=== PATIENT | female | born 1955 | race Hispanic/Latino ===

== ENCOUNTER 2018-01-12 10:33 | Emergency (ER) | payer OTHER, BC ==
[2018-01-12 10:44] VITALS: BMI 31.6
[2018-01-12 10:45] VITALS: RESP 18; O2SAT 99
[2018-01-12] MEDS ORDERED: Sodium Chloride 0.9% 1,000 ML IV STA (11:23)
[2018-01-12] MEDS ORDERED: Magnesium Sulfate 1 gm in D5W 1 GM/100 ML BAG IVPB ONE (11:23)
--- NOTE | 2018-01-12 11:27 | ED PDOC ---
Arrival/HPI - General Chief Complaint: Headache Time Seen by Provider: 01/12/18 11:15 Historian: Patient - History of Present Illness Narrative History of Present Illness (Text): 01/12/18 11:24 pt p/w + 2days onset of right sided headache, consistent with her migraine; pt states she at most would experience 1 headache a month (due to her migraines) but this headache has been lasting longer and OTC medications are not helping ( excedrin); pt states + light sensitive, + nausea; no fever/chills/sweats, no cp/ sob/palpitations, no abd pain, no vomiting, no numbness/tingling, no arm weakness, no facial changes, no urinary/bowel changes, no incontinence, no fall/ trauma/sick contact, no travel; pt is here for further eval; pt's without other complaints. PCP: Dr Donnelly right hand dominate PMHx: migraines, DM Time/Duration: < week (2 days) Symptom Onset: Sudden Symptom Course: Unchanged Quality: Tightness, Stabbing, Cramping Severity Level: 10, Severe Activities at Onset: Rest Context: Home Past Medical History - Provider Review Nursing Documentation Reviewed: Yes - Travel History Have you recently traveled outside [place] w/in the past 3 mons?: No - Past History Past History: No Previous - Infectious Disease Hx of Infectious Diseases: None - Reproductive Menopause: Yes Currently : No - Cardiac Hx Cardiac Disorders: Yes Other/Comment: hyperlipedemia - Pulmonary Hx Respiratory Disorders: No - Neurological Hx Neurological Disorder: No - HEENT Hx HEENT Disorder: Yes Other/Comment: Reading glasses. B/l Lasix Eye Surgery - Renal Hx Renal Disorder: No - Endocrine/Metabolic Hx Endocrine Disorders: Yes Hx Diabetes Mellitus Type 2: Yes - Hematological/Oncological Hx Blood Disorders: No - Integumentary Hx Dermatological Disorder: No - Musculoskeletal/Rheumatological Hx Musculoskeletal Disorders: No - Gastrointestinal Hx Gastrointestinal Disorders: No - Genitourinary/Gynecological Hx Genitourinary Disorders: No - Psychiatric Hx Psychophysiologic Disorder: No Hx Substance Use: No - Surgical History Hx Orthopedic Surgery: Yes (R knee, L shoulder, R foot, b/l wrist) Hx Tonsillectomy: Yes - Anesthesia Hx Anesthesia: Yes Hx Anesthesia Reactions: No - Suicidal Assessment Feels Threatened In Home Enviroment: No Family/Social History - Physician Review Nursing Documentation Reviewed: Yes Family/Social History: No Known Family HX Smoking Status: Never Smoked Hx Alcohol Use: Yes Frequency of alcohol use: Socially Hx Substance Use: No Hx Substance Use Treatment: No Allergies/Home Meds Allergies/Adverse Reactions: Allergies iodine Allergy (Verified 01/12/18 10:46) RASH Penicillins Allergy (Verified 01/12/18 10:46) RASH sulfamethoxazole [From Bactrim] Allergy (Verified 01/12/18 10:46) ANAPHYLAXIS trimethoprim [From Bactrim] Allergy (Verified 01/12/18 10:46) ANAPHYLAXIS Home Medications: Home Meds Medication Instructions Recorded Confirmed Alprazolam [Xanax] 0.25 mg PO DAILY 11/20/13 01/12/18 Esomeprazole Magnesium [Nexium] 20 mg PO DAILY 11/20/13 01/12/18 Glimepiride 5 mg PO BID 11/20/13 01/12/18 Metformin Hydrochloride/Anny 1 tab PO DAILY 11/20/13 01/12/18 [Janumet 500 mg-50 mg] [id number] Ethyl Esters [Lovaza] 1 gm PO BID 11/20/13 01/12/18 Pregabalin [Lyrica] 75 mg PO DAILY 11/20/13 01/12/18 Rosuvastatin Calcium [Crestor] 10 mg PO DAILY 11/20/13 01/12/18 Mirabegron [Myrbetriq] 50 mg PO DAILY 01/12/18 01/12/18 Naproxen [Naprosyn Tab] 375 mg PO DAILY 01/12/18 01/12/18 Tiotropium [Spiriva] 18 mcg INH DAILY 01/12/18 01/12/18 Review of Systems - Review of Systems Constitutional: Normal Eyes: Normal ENT: Normal Respiratory: Normal Cardiovascular: Normal. absent: Chest Pain, Orthopnea, Syncope Gastrointestinal: Nausea. absent: Abdominal Pain, Vomiting Genitourinary Female: Normal Musculoskeletal: Normal Skin: Normal Neurological: Headache Endocrine: Normal Hemo/Lymphatic: Normal Psychiatric: Normal Physical Exam - Physical Exam Narrative Physical Exam (Text): 01/12/18 11:23 General: alert/awake, GCS = 15, oriented x 3, resting in bed, uncomfortable, cooperative, interactive; mild distress due to pain Head: NC/AT EYE: PERRLA, EOMI, sclera anicteric, no nystagmus, + light sensitive; visual field intact b/l; wearing sunglasses Facial: WNL Oral: uvula/tongue are midline, no exudate/lesions, no drooling/stridor, no dysphonia; intact dentitions; mild dry oral mucosa NECK: intact ROM, no midline tenderness, no nuchal rigidity, no meningeal signs ; no step off Chest: CTA b/l, no w/r/r; no tachypenia, no accessory muscle use noted Cardiac: +S1, +S2, no m/r/r, no tachycardia Abdominal: +BS, soft/nd/nt, well nourished/obese female patient; no masses/ rebound/guarding/rigidity; no joya's sign, no mcburney's point tenderness Extremities: intact ROM, strength 5/5 grossly intact in all limbs, neurovasc intact b/l; + ambulatory; reflex +2/2 BACK: no step off, no midline tenderness, NO crepitus, no gross deformities noted; Intact ROM SKIN: cap refill ~ 1 sec, no ulcerations, no petechiae, no rashes; no gross pallor noted NEURO: CNII-XII WNL, no facial asymmetries, no slurr speech, oriented x 3 NIH stroke scale ~ 0 Psych: normal insight, normal affect; follows command with ease Vital Signs Reviewed: Yes Vital Signs Temp Pulse Resp BP Pulse Ox 01/12/18 14:00 64 18 128/68 99 01/12/18 12:33 69 18 130/71 99 01/12/18 10:44 98.4 F 75 18 132/79 99 Temperature: Afebrile Blood Pressure: Normal Pulse: Regular Respiratory Rate: Normal Appearance: Positive for: Well-Appearing, Non-Toxic, Uncomfortable. No: Ill- Appearing, Unkept Pain Distress: Mild Mental Status: Positive for: Alert and Oriented X 3 Finger Stick Blood Glucose: 340 - Systems Exam Head: Present: Atraumatic, Normocephalic Medical Decision Making ED Course and Treatment: 01/12/18 11:23 Impression: murphy i have consider all the differential diagnosis regarding pt's chief medical complaints/clinical findings, including but are not limited to: murphy, migraines unlikely infectious cause, unlikely traumatic cause A/P: murphy - labs - iv - supportive care - observe/reevaluation 1:30pm pt felt improved pt states her headache is now 4-5/10 01/12/18 14:30 vital signs WNL pt states her headache remains improved, current pain level is 3/10 pt is made aware of her medical results pt is encouraged fluids pt is encouraged outpt f/u pt will be discharged home Re-evaluation Time: 14:00 Reassessment Condition: Improved - Lab Interpretations Lab Results: 01/12/18 12:18 01/12/18 12:18 Lab Results 01/12/18 12:18: Sodium 144, Potassium 4.6, Chloride 100, Carbon Dioxide 30, Anion Gap 19, BUN 16, Creatinine 0.6 L, Est GFR ( Amer) > 60, Est GFR ( Non-Af Amer) > 60, Random Glucose 371 H* D, Calcium 9.9, Total Bilirubin 0.5, AST 46 H, ALT 86 H, Alkaline Phosphatase 128 H, Total Protein 8.1, Albumin 4.7, Globulin 3.4, Albumin/Globulin Ratio 1.4 01/12/18 12:18: WBC 7.5, RBC 5.06, Hgb 14.6, Hct 42.9, MCV 84.8, MCH 28.9, MCHC 34.0, RDW 12.8, Plt Count 247, MPV 10.1, Gran % 65.4, Lymph % (Auto) 26.7, [place] % (Auto) 5.5, Eos % (Auto) 1.2 L, Baso % (Auto) 1.2, Gran # 4.89, Lymph # (Auto ) 2.0, [place] # (Auto) 0.4, Eos # (Auto) 0.1, Baso # (Auto) 0.09, ESR 17 01/12/18 11:51: Urine Color Yellow, Urine Appearance Clear, Urine pH 6.0, Ur Specific [place] 1.015, Urine Protein Negative, Urine Glucose (UA) >=1000, Urine Ketones Negative, Urine Blood Negative, Urine Nitrate Positive H, Urine Bilirubin Negative, Urine Urobilinogen 0.2, Ur Leukocyte Esterase Negative, Urine RBC 0 - 2, Urine WBC 2 - 5, Ur Epithelial Cells 4 - 5, Urine Bacteria Many , Urine Other Uyeast 01/12/18 10:57: POC Glucose (mg/dL) 340 H I have reviewed the lab results: Yes Interpretation: Abnormal lab values (elevated GLUC) - Medication Orders Current Medication Orders: Discontinued Medications Magnesium Sulfate/Dextrose (Magnesium Sulfate 1 Gm/100 Ml D5w) 1 gm in 100 mls @ 100 mls/hr IVPB ONCE ONE Stop: 01/12/18 12:22 Last Admin: 01/12/18 12:10 Dose: 100 mls/hr eMAR Start Stop Document 01/12/18 12:10 HI (Rec: 01/12/18 12:10 HI [id number]) Intravenous Solution Start Date 01/12/18 Start Time 12:10 Sodium Chloride (Sodium Chloride 0.9%) 1,000 mls @ 999 mls/hr IV .Q1H1M STA Stop: 01/12/18 12:23 Last Admin: 01/12/18 12:08 Dose: 999 mls/hr eMAR Start Stop Document 01/12/18 12:08 HI (Rec: 01/12/18 12:08 HI [id number]) Intravenous Solution Start Date 01/12/18 Start Time 12:08 Ketorolac Tromethamine (Toradol) 30 mg IVP STAT STA Stop: 01/12/18 11:24 Last Admin: 01/12/18 12:10 Dose: 30 mg MAR Pain Assessment Document 01/12/18 12:10 HI (Rec: 01/12/18 12:10 HI [id number]) Pain Reassessment Is this a pain reassessment? No Sleep Is patient sleeping during reassessment? No Presence of Pain Presence of Pain Yes Location Pain Location Body Billing Clerk Description Intensity of Pain at present 8 Acceptable Level of Pain 0 IVP Administration Document 01/12/18 12:10 HI (Rec: 01/12/18 12:10 HI [id number]) Charges for Administration # of IVP Administrations 1 Metoclopramide HCl (Reglan) 10 mg IVP STAT STA Stop: 01/12/18 11:24 Last Admin: 01/12/18 12:10 Dose: 10 mg IVP Administration Document 01/12/18 12:10 HI (Rec: 01/12/18 12:10 HI [id number]) Charges for Administration # of IVP Administrations 1 Disposition/Present on Arrival - Present on Arrival Any Indicators Present on Arrival: No History of DVT/PE: No History of Uncontrolled Diabetes: No Urinary Catheter: No History of Decub. Ulcer: No History Surgical Site Infection Following: None - Disposition Have Diagnosis and Disposition been Completed?: Yes Diagnosis: Migraine, Hyperglycemia Disposition: HOME/ ROUTINE Disposition Time: 14:38 Patient Plan: Discharge Condition: STABLE Discharge Instructions (ExitCare): Migraine Headache (DC), Blood Glucose Monitoring Print Language: UZBEK Additional Instructions: Make sure to see your doctor in 1-2 days DRINK PLENTY OF FLUIDS take your medications as prescribed RETURN TO ED IF worse pain, cant breath, persistent vomiting, high fever >101- 102 for hours, altered behavior, slurr speech, facial changes, focal weakness ( arm/leg or both), unable to urinate, heavy/persistent bleeding, passing out, chest pain, or other medical emergencies Prescriptions: Ibuprofen [Motrin] 400 mg PO QID PRN #30 tab PRN Reason: Pain, Mild (1-3) Metoclopramide [Reglan] 10 mg PO TID PRN #30 tab PRN Reason: Nausea/Vomiting Referrals: De Craven MD [Staff Provider] - Follow up with primary [facility] [Outside] - Follow up with primary [facility] [Outside] - Follow up with primary [facility] [Outside] - Follow up with primary Forms: [facility] (Italian)
[2018-01-12 11:56] LABS: URINE BILIRUBIN NEGATIVE (NEGATIVE); URINE BLOOD NEGATIVE (NEGATIVE); URINE GLUCOSE (UA) >=1000 mg/dL (NEGATIVE); URINE LEUKOCYTE ESTERASE NEGATIVE Leu/uL (NEGATIVE); URINE PROTEIN NEGATIVE mg/dL (<30 mg/dL); URINE UROBILINOGEN 0.2 E.U./dL (<1 E.U./dL)
[2018-01-12 12:28] LABS: BASO # 0.09 K/mm3 (0.0-2.0); BASO % 1.2 % (0.0-3.0); EOS # 0.1 (0.0-0.7); EOS % 1.2 % (1.5-5.0); GRAN # 4.89 (1.4-6.5); GRAN % 65.4 % (50.0-68.0); HEMOGLOBIN 14.6 g/dL (12.0-16.0); LYMPH % 26.7 % (22.0-35.0); MEAN CELL VOLUME 84.8 fl (80.0-105.0); MEAN CORPUSCULAR HEMOGLOBIN 28.9 pg (25.0-35.0); MEAN PLATELET VOLUME 10.1 fl (7.0-11.0); MONO # 0.4 (0.1-0.6); MONO % 5.5 % (1.0-6.0); RBC 5.06 10^6/uL (3.5-6.1); RED CELL DISTRIBUTION WIDTH 12.8 % (11.5-14.5); WHITE BLOOD COUNT 7.5 10^3/ul (4.5-11.0)
[2018-01-12 12:32] LABS: URINE APPEARANCE CLEAR (CLEAR); URINE COLOR YELLOW (YELLOW)
[2018-01-12 12:42] LABS: URINE RBC 0 - 2 /hpf (0-2)
[2018-01-12 12:43] LABS: URINE BACTERIA MANY (NEG)
[2018-01-12 12:45] LABS: ALB/GLOB RATIO 1.4 (1.1-1.8); ALBUMIN 4.7 g/dL (3.0-4.8); ALT/SGPT 86 U/L (7-56); AST/SGOT 46 U/L (14-36); BLOOD UREA NITROGEN 16 mg/dL (7-21); CALCIUM 9.9 mg/dL (8.4-10.5); GFR AFRICAN-AMERICAN > 60; GFR NON-AFRICAN AMERICAN > 60
[2018-01-12 18:22] VITALS: BP 125/72; PULSE 70; TEMP 98.3
== END 2018-01-12 14:00 | disposition home or self-care (01) ==
LOC: ED 10:33
DX: G43.909 Migraine, unspecified, not intractable, without status migrainosus (principal); E11.65 Type 2 diabetes mellitus with hyperglycemia
CPT/HCPCS: 80053; 81001; 82948; 85025; 85651; 87086; 96374; 96375; 99285; J1885; J2765; J3475; J7030

== ENCOUNTER 2018-03-11 16:56 | Observation (INO) | payer OTHER, BC ==
--- NOTE | 2018-03-11 18:46 | ED PDOC ---
Arrival/HPI - General Historian: Patient - History of Present Illness Time/Duration: Prior to Arrival Symptom Onset: Gradual - General Chief Complaint: GI Problem Time Seen by Provider: 03/11/18 17:48 - History of Present Illness Narrative History of Present Illness (Text): 03/11/18 18:42 Patient is a 63 yo female, past medical history of diabetes, presents to the Emergency Department with history of chills yesterday morning, loose stools last night, and nausea and persistent stools today. She feels very fatigued and weak. Denies chest pain or cough or abdominal pain. Denies vomiting. Denies any recent travel. Denies any bites or known new exposures. Denies any recent antibiotic usage. Of note, patient's recently admitted to ICU for nausea vomiting and diarrhea over past week. No headaches or neck pain. (Ramos Wylie) Past Medical History - Past History Past History: No Previous - Infectious Disease Hx of Infectious Diseases: None - Reproductive Menopause: Yes - Cardiac Hx Cardiac Disorders: Yes Other/Comment: hyperlipedemia - Pulmonary Hx Respiratory Disorders: No - Neurological Hx Neurological Disorder: No - HEENT Hx HEENT Disorder: Yes Other/Comment: Reading glasses. B/l Lasix Eye Surgery - Renal Hx Renal Disorder: No - Endocrine/Metabolic Hx Endocrine Disorders: Yes Hx Diabetes Mellitus Type 2: Yes - Hematological/Oncological Hx Blood Disorders: No - Integumentary Hx Dermatological Disorder: No - Musculoskeletal/Rheumatological Hx Musculoskeletal Disorders: No - Gastrointestinal Hx Gastrointestinal Disorders: No - Genitourinary/Gynecological Hx Genitourinary Disorders: No - Psychiatric Hx Psychophysiologic Disorder: No Hx Substance Use: No - Surgical History Hx Orthopedic Surgery: Yes (R knee, L shoulder, R foot, b/l wrist) Hx Tonsillectomy: Yes - Anesthesia Hx Anesthesia: Yes Hx Anesthesia Reactions: No Hx Malignant Hyperthermia: No - Suicidal Assessment Feels Threatened In Home Enviroment: No Family/Social History Family/Social History: Other ( recently admitted for sepsis) Smoking Status: Never Smoked Hx Alcohol Use: Yes Hx Substance Use: No Hx Substance Use Treatment: No Allergies/Home Meds Allergies/Adverse Reactions: Allergies iodine Allergy (Verified 01/12/18 10:46) RASH Penicillins Allergy (Verified 01/12/18 10:46) RASH sulfamethoxazole [From Bactrim] Allergy (Verified 01/12/18 10:46) ANAPHYLAXIS trimethoprim [From Bactrim] Allergy (Verified 01/12/18 10:46) ANAPHYLAXIS Home Medications: Home Meds Medication Instructions Recorded Confirmed Alprazolam [Xanax] 0.25 mg PO DAILY 11/20/13 03/11/18 Metformin Hydrochloride/Anny 1 tab PO DAILY 11/20/13 03/11/18 [Janumet 500 mg-50 mg] [id number] Ethyl Esters [Lovaza] 1 gm PO BID 11/20/13 03/11/18 Pregabalin [Lyrica] 75 mg PO DAILY 11/20/13 03/11/18 Rosuvastatin Calcium [Crestor] 10 mg PO DAILY 11/20/13 03/11/18 Mirabegron [Myrbetriq] 50 mg PO DAILY 01/12/18 03/11/18 Naproxen [Naprosyn Tab] 375 mg PO DAILY 01/12/18 03/11/18 Tiotropium [Spiriva] 18 mcg INH DAILY 01/12/18 03/11/18 Budesonide/Formoterol Fumarate 2 % INH BID 03/11/18 03/11/18 [Symbicort 160-4.5 Mcg Inhaler] GlipiZIDE [Glucotrol] 5 mg PO DAILY 03/11/18 03/11/18 [id number] Ethyl Esters 1 GM 1 gr PO BID 03/11/18 03/11/18 [Lovaza] Pregabalin [Lyrica] 100 mg PO DAILY 03/11/18 03/11/18 Review of Systems - Review of Systems Constitutional: Fatigue, Fevers Eyes: absent: Vision Changes ENT: absent: Hearing Changes Respiratory: absent: SOB, Cough Cardiovascular: absent: Chest Pain, Palpitations Gastrointestinal: Diarrhea, Nausea. absent: Abdominal Pain, Vomiting, Hematochezia, Hematemesis Genitourinary Female: absent: Dysuria, Frequency Musculoskeletal: absent: Back Pain Skin: absent: Rash Neurological: absent: Headache, Dizziness, Focal Weakness Endocrine: absent: Polyuria Hemo/Lymphatic: absent: Easy Bleeding Physical Exam Vital Signs Reviewed: Yes Temperature: Afebrile Pulse: Tachycardic Appearance: Positive for: Ill-Appearing Mental Status: Positive for: Alert and Oriented X 3 - Systems Exam Head: Present: Atraumatic Pupils: Present: PERRL Extroacular Muscles: Present: EOMI Conjunctiva: No: Injected, Icteric Mouth: Present: Dry Pharnyx: No: ERYTHEMA Nose (Internal): Present: Normal Inspection Neck: Present: Normal Range of Motion. No: Meningeal Signs Respiratory/Chest: Present: Clear to Auscultation. No: Respiratory Distress Cardiovascular: Present: Murmurs, Tachycardic Abdomen: No: Tenderness Rectal: No: Gross Blood Back: No: CVA Tenderness Upper Extremity: No: Cyanosis, Edema Lower Extremity: No: Edema, CALF TENDERNESS Neurological: Present: Motor Func Grossly Intact, Normal Sensory Function Skin: Present: Warm Psychiatric: Present: Alert Vital Signs Temp Pulse Resp BP Pulse Ox 03/11/18 19:53 101.7 F H 03/11/18 19:41 101.7 F H 03/11/18 19:27 100.7 F H 03/11/18 19:12 118 H 20 135/90 95 03/11/18 16:56 99.4 F 119 H 18 124/85 96 Medical Decision Making ED Course and Treatment: 03/11/18 18:45 Patient is a 63 yo female with nausea and diarrhea and chills since yesterday. On exam, no meningeal signs. BP stable. No respiratory distress. She is tachycardic, but denies chest pain or abdominal pain. No bleeding reported. No recent travel or antibiotic usage noted. IV fluids ordered. Labs ordered. Case endorsed to Dr. Sonya Olson for re-evaluation, lab follow-up, and disposition. (Ramos Wylie) 03/11/18 20:52 EKG reviewed, shows: Sinus tachycardia at 117bpm Inferior infarct 03/11/18 21:[address] Donnelly, and agree to admit patient for IV hydration and insulin coverage. (Steve Olson) - Lab Interpretations Lab Results: 03/11/18 18:37 03/11/18 18:37 Lab Results 03/11/18 18:37: Sodium 134, Chloride 92 L, Potassium 4.3, Carbon Dioxide 25, Anion Gap 21 H, BUN 17, Creatinine 0.8, Est GFR ( Amer) > 60, Est GFR ( Non-Af Amer) > 60, Random Glucose 355 H*, Calcium 9.6, Total Bilirubin 1.0, AST 35, ALT 61 H, Alkaline Phosphatase 107, Lactate Dehydrogenase 568, Total Creatine Kinase 40, Troponin I < 0.01, Total Protein 7.9, Albumin 4.4, Globulin 3.4, Albumin/Globulin Ratio 1.3 03/11/18 18:37: pO2 24 L, VBG pH 7.30 L, VBG pCO2 50.0, VBG HCO3 24.6, VBG Total CO2 26.1, VBG O2 Sat (Calc) 54.5, VBG Base Excess -2.4 L, VBG Potassium 4.4, Sodium 131.0 L, Chloride 93.0 L, Glucose 362 H, Lactate 1.6, FiO2 21.0, Venous Blood Potassium 4.4 03/11/18 18:37: PT 13.5 H, INR 1.18, APTT 32.1 03/11/18 18:37: WBC 7.5, RBC 5.48, Hgb 15.7, Hct 45.5, MCV 83.0, MCH 28.6, MCHC 34.5, RDW 12.5, Plt Count 247, MPV 10.1, Gran % 78.1 H, Lymph % (Auto) 13.6 L, [place] % (Auto) 7.8 H, Eos % (Auto) 0.0 L, Baso % (Auto) 0.5, Gran # 5.87, Lymph # (Auto) 1.0 L, [place] # (Auto) 0.6, Eos # (Auto) 0.0, Baso # (Auto) 0.04 - RAD Interpretation Radiology Orders: 03/11/18 19:22 CHEST PORTABLE [RAD] Stat - Medication Orders Current Medication Orders: Discontinued Medications Acetaminophen (Tylenol 325mg Tab) 975 mg PO STAT STA Stop: 03/11/18 19:48 Last Admin: 03/11/18 19:53 Dose: 975 mg MAR Pain/Vitals Document 03/11/18 19:53 HI (Rec: 03/11/18 19:53 HI [id number]) Vitals Temperature (97.6 F-99.6 F) 101.7 F Temperature Source Rectal Famotidine (Pepcid) 20 mg IVP STAT STA Stop: 03/11/18 19:22 Last Admin: 03/11/18 19:54 Dose: 20 mg IVP Administration Document 03/11/18 19:54 HI (Rec: 03/11/18 19:54 MA [id number]) Charges for Administration # of IVP Administrations 1 Sodium Chloride (Sodium Chloride 0.9%) 1,000 mls @ 1,000 mls/hr IV .Q1H STA Stop: 03/11/18 20:20 Last Admin: 03/11/18 19:53 Dose: 1,000 mls/hr eMAR Start Stop Document 03/11/18 19:53 MA (Rec: 03/11/18 19:54 MA [id number]) Intravenous Solution Start Date 03/11/18 Start Time 19:53 Disposition/Present on Arrival - Present on Arrival Any Indicators Present on Arrival: No History of DVT/PE: No History of Uncontrolled Diabetes: No Urinary Catheter: No History of Decub. Ulcer: No History Surgical Site Infection Following: None - Disposition Have Diagnosis and Disposition been Completed?: Yes Disposition Time: 19:00 - Disposition Diagnosis: Diarrhea Patient Problems: Current Active Problems Problem Status Onset Diarrhea Acute Condition: FAIR Forms: [employer] ([place])
[2018-03-11 19:00] LABS: VENOUS BLOOD GAS BASE EXCESS -2.4 mmol/L (0.0-2.0); VENOUS BLOOD GAS PO2 24 mm/Hg (30-55)
[2018-03-11 19:04] LABS: BASO # 0.04 K/mm3 (0.0-2.0); BASO % 0.5 % (0.0-3.0); GRAN # 5.87 (1.4-6.5); GRAN % 78.1 % (50.0-68.0); HEMOGLOBIN 15.7 g/dL (12.0-16.0); LYMPH % 13.6 % (22.0-35.0); MEAN CORPUSCULAR HEMOGLOBIN 28.6 pg (25.0-35.0); MEAN CORPUSCULAR HGB CONC 34.5 g/dl (31.0-37.0); MEAN PLATELET VOLUME 10.1 fl (7.0-11.0); MONO # 0.6 (0.1-0.6); MONO % 7.8 % (1.0-6.0); RBC 5.48 10^6/uL (3.5-6.1); RED CELL DISTRIBUTION WIDTH 12.5 % (11.5-14.5); WHITE BLOOD COUNT 7.5 10^3/ul (4.5-11.0)
[2018-03-11 19:09] LABS: INR 1.18; PARTIAL THROMBOPLASTIN TIME 32.1 Seconds (25.1-36.5); PROTHROMBIN TIME 13.5 SECONDS (9.4-12.5)
[2018-03-11 19:12] VITALS: RESP 20
[2018-03-11 19:20] LABS: TROPONIN I < 0.01 ng/mL
[2018-03-11] MEDS ORDERED: Sodium Chloride 0.9% 1,000 ML IV STA (19:21)
[2018-03-11 19:35] LABS: ALB/GLOB RATIO 1.3 (1.1-1.8); ALBUMIN 4.4 g/dL (3.0-4.8); ALT/SGPT 61 U/L (7-56); AST/SGOT 35 U/L (14-36); BLOOD UREA NITROGEN 17 mg/dL (7-21); CALCIUM 9.6 mg/dL (8.4-10.5); GFR AFRICAN-AMERICAN > 60; GFR NON-AFRICAN AMERICAN > 60
--- NOTE | 2018-03-11 21:31 | CARD ---
APPROVED REPORT Date of service: 03/11/2018 EKG Measurement Heart [id number] <Conclusion> Sinus tachycardia Inferior infarct, age undetermined Cannot rule out Anterior infarct, age undetermined Abnormal ECG
[2018-03-11] MEDS: Insulin Reg-LOW-Coverage SC SCH (22:14)
[2018-03-11 22:54] VITALS: BMI 31.2
[2018-03-12] MEDS: Sodium Chloride 0.45% 1,000 ML IV SCH (04:06)
[2018-03-12 08:33] LABS: HEMOGLOBIN 14.7 g/dL (12.0-16.0); MEAN CELL VOLUME 82.9 fl (80.0-105.0); MEAN CORPUSCULAR HEMOGLOBIN 28.6 pg (25.0-35.0); MEAN CORPUSCULAR HGB CONC 34.5 g/dl (31.0-37.0); MEAN PLATELET VOLUME 9.5 fl (7.0-11.0); RBC 5.14 10^6/uL (3.5-6.1); RED CELL DISTRIBUTION WIDTH 12.6 % (11.5-14.5); WHITE BLOOD COUNT 5.8 10^3/ul (4.5-11.0)
[2018-03-12] MEDS: Insulin Reg-LOW-Coverage SC SCH ×4 (08:45→22:10)
[2018-03-12 08:52] LABS: ALB/GLOB RATIO 1.2 (1.1-1.8); ALT/SGPT 67 U/L (7-56); AST/SGOT 43 U/L (14-36); BLOOD UREA NITROGEN 14 mg/dL (7-21); CALCIUM 9.1 mg/dL (8.4-10.5); GFR AFRICAN-AMERICAN > 60; GFR NON-AFRICAN AMERICAN > 60
--- NOTE | 2018-03-12 09:00 | RAD ---
Date of service: 03/11/2018 HISTORY: WEAKNESS COMPARISON: 11/20/2013 FINDINGS: LUNGS: No active pulmonary disease. PLEURA: No significant pleural effusion identified, no pneumothorax apparent. CARDIOVASCULAR: Normal. OSSEOUS STRUCTURES: No significant abnormalities. VISUALIZED UPPER ABDOMEN: Normal. OTHER FINDINGS: None. IMPRESSION: No active disease.
--- NOTE | 2018-03-12 09:15 | HP ---
Copied To: Dex Donnelly DO Attending MD: Dex Donnelly DO HISTORY OF PRESENT ILLNESS: I was called down to the ER last night, night to see and she was being worked up in the ER. Her was just put in the Intensive Care Unit and she was very emotional and very weak. She is a 63-year-old white female who was in the emergency room last night had fever and chills, also had diarrhea, persistent stools, most probably a viral gastroenteritis, but was feeling very weak. Did not have much of an appetite. The went through the same thing and had been in Intensive Care Unit. She did not have any cough or abdominal pain. No vomiting. No recent travel. No bites. Just lethargic and tired with the diarrhea, a little bit dehydrated. PAST MEDICAL HISTORY: She has a past medical history of high cholesterol. She wears reading glasses. She has bilateral LASIK eye surgery. She has diabetes. She has a history of right knee surgery, left shoulder surgery, right foot surgery and bilateral wrist surgery. She had tonsillectomy. She is very stressed. The was just admitted with sepsis to the Intensive Care Unit with a similar picture of diarrhea. SOCIAL HISTORY: She never smoked. She does drink occasionally. No drugs. ALLERGIES: SHE IS ALLERGIC TO IODINE, PENICILLINS, BACTRIM. MEDICATIONS: She takes Xanax, metformin, Januvia, Lovaza, Lyrica, Crestor, Myrbetriq, Naprosyn, Spiriva, Symbicort Glucotrol, and [place]. REVIEW OF SYSTEMS: She is fatigued with fevers. No acute vision or hearing changes. No shortness of breath or cough. No chest pain or palpitations. She had diarrhea and nauseousness. No abdominal pain or vomiting. No problems urinating. No back pain. No rashes. No headaches or dizziness. No focal weakness. No polyuria. No easy bleeding. She is very worried, anxious about the situation. She is in with the . PHYSICAL EXAMINATION VITAL SIGNS: She had 101.7 temp, 118 pulse, 20 respiratory rate, 135/90 blood pressure, 95% O2 sat when she came into the emergency room. GENERAL: She is very ill appearing, alert, oriented x3, stressed. HEENT: Head is atraumatic, normocephalic. Pupils are equally reactive to light. Throat is dry. NECK: Supple. HEART: Regular rate, little tachy. LUNGS: Decreased breath sounds but clear to auscultation. ABDOMEN: Soft, nontender. Positive bowel sounds. No guarding, no rebound, no CVA tenderness. RECTAL: There is a rectal done in the ER and no gross blood. EXTREMITIES: No edema. NEUROLOGIC: She is alert and oriented x3. GCS is 15. SKIN: Warm and dry. No apparent rashes or ulcers. LYMPHATICS: Thyroid midline. No palpable appreciable lymphadenopathy. LABORATORY DATA: She had multiple tests that were done in the ER last night when I saw her. She had 134 sodium, potassium 4.3, BUN 17, creatinine 0.8, GFR greater than 60, sugar was 355. Calcium is 9.6, total bili is 1, AST is 35, ALT is 61, alk phos 107, lactate dehydrogenase 568. Troponin I is less than 0.01, total protein 7.9, albumin is 4.4. White count 7.5, hemoglobin 15.7, hematocrit 45.5, platelet count 247. INR is 1.18. Lactate was 1.6. Current labs pending this morning. Chest x-ray was okay. The EKG was sinus tachycardia, old inferior infarct. ASSESSMENT AND PLAN: At this point in time, she is definitely improved. Awaiting for these labs to come back this morning. I put her back on a regular medications. I put her on a diet. If she does go for lunch, will be discharged this afternoon. Awaiting for the labs to come back. She was here for like a viral gastroenteritis picture, anxiety. She is in observation. She has a 97.6 temperature. Dex Donnelly DO
[2018-03-12] MEDS: Omega-3-Acid Ethyl Esters 1 GM Cap PO SCH ×2 (09:25→17:26)
[2018-03-12] MEDS: Tiotropium 18 mcg Cap For Inhalation INH SCH (09:26)
[2018-03-12] MEDS ORDERED: PREGABALIN 75 MG PO SCH (10:00)
[2018-03-12] MEDS ORDERED: Non Formulary Medication (Rosuvastatin Calcium [Crestor] 10 MG) PO SCH (10:00)
[2018-03-12] MEDS ORDERED: METFORMIN HYDROCHLORIDE PO SCH (10:00)
[2018-03-12] MEDS ORDERED: SITAGLIPTIN PO SCH (10:00)
[2018-03-12] MEDS ORDERED: OMEGA ACID ETHYL ESTERS PO SCH (10:00)
[2018-03-13] MEDS: Sodium Chloride 0.45% 1,000 ML IV SCH (04:00)
[2018-03-13] MEDS: Insulin Reg-LOW-Coverage SC SCH ×2 (07:33→11:34)
[2018-03-13] MEDS: Non Formulary Medication (Budesonide/Formoterol Fumarate [Symbicort 160-4.5 Mcg Inhaler] 2 INH SCH ×2 (11:20→18:44)
[2018-03-13] MEDS: Tiotropium 18 mcg Cap For Inhalation INH SCH (11:25)
[2018-03-13] MEDS: Omega-3-Acid Ethyl Esters 1 GM Cap PO SCH ×2 (11:25→19:29)
--- NOTE | 2018-03-13 15:31 | CT ---
Date of service: 03/13/2018 PROCEDURE: CT Abdomen and Pelvis without intravenous contrast HISTORY: gastroenteritis COMPARISON: Comparison made with prior CT scan abdomen pelvis dated 11/22/2013. TECHNIQUE: Contiguous helical/transaxial sections of the abdomen pelvis performed without oral or intravenous contrast material. Additional 2D sagittal and coronal reformats generated. Radiation dose: Total exam DLP = 1044.37 mGy-cm. This CT exam was performed using one or more of the following dose reduction techniques: Automated exposure control, adjustment of the mA and/or kV according to patient size, and/or use of iterative reconstruction technique. FINDINGS: LOWER THORAX: Heart size normal. Questionable trace pericardial effusion or possibly some mild pericardial thickening. . Tiny hiatal hernia. There appears to be some minor linear atelectasis and or scarring in the middle lobe region. Lung bases otherwise clear. No effusion or basilar pneumothorax. LIVER: Liver exhibits relatively normal size measuring approximately 17 cm in CC dimension. Moderate diffuse fatty hepatic infiltration felt be present. GALLBLADDER AND BILE DUCTS: Gallbladder is physiologically distended. No obvious intraluminal gallbladder calculi PANCREAS: Pancreas appears somewhat atrophic and fatty replaced. SPLEEN: Spleen exhibits normal size and attenuation pattern without mass collection calcification. ADRENALS: There are no adrenal lesions. KIDNEYS AND URETERS: Kidneys demonstrate symmetric size. No evidence of nephrolithiasis or hydronephrosis. VASCULATURE: Unremarkable. No aortic aneurysm. BOWEL: Evaluation of the bowel is somewhat limited due to lack of oral contrast material. Stomach is incompletely distended. Visualized loops of small bowel exhibit normal contour and caliber. No evidence of acute mechanical small bowel obstruction. There appears to be a large amount of liquid stool within large bowel suggesting diarrheal illness. There may also be some mild wall thickening of the descending and sigmoid colon. Additionally, mild infiltration changes are seen in the adjacent mesentery particularly notable surrounding the ascending and proximal sigmoid colon and less so the cecum and at ascending colon. Additionally, there is a relative paucity colonic haustrations ; rule out on infectious and or inflammatory process including such as Crohn's or ulcerative colitis. There may also be a few scattered colonic diverticula along the sigmoid colon however these are felt to be incidental to the aforementioned findings. APPENDIX: Normal appendix of best seen on axial image number [id number]. No periappendiceal inflammatory changes. . PERITONEUM: Unremarkable. No free fluid. No free air. LYMPH NODES: Unremarkable. No enlarged lymph nodes. BLADDER: Urinary bladder incompletely distended which in part accounts for thick-walled appearance. Correlation with urinalysis recommended to exclude possibility of a cystitis. REPRODUCTIVE: Unremarkable. BONES: Minor multilevel degenerative spondylosis of the lower thoracic and lumbar spine. OTHER FINDINGS: None. IMPRESSION: There appears to be a large amount of liquid stool within large bowel suggesting diarrheal illness. There may also be some mild wall thickening of the descending and sigmoid colon. Additionally, mild infiltration changes are seen in the adjacent mesentery particularly notable surrounding the ascending and proximal sigmoid colon and less so the cecum and at ascending colon. Additionally, there is a relative paucity colonic haustrations ; rule out on infectious and or inflammatory process including such as Crohn's or ulcerative colitis. There may also be a few scattered colonic diverticula along the sigmoid colon however these are felt to be incidental to the aforementioned findings.
--- NOTE | 2018-03-13 15:33 | PN ---
Copied To: Dex Donnelly DO Attending MD: Dex Donnelly DO DATE: 03/13/2018 SUBJECTIVE: She is sitting up in bed. She is very nauseous, looks very pale. She is very upset with abdominal pain. I tried to discharge her yesterday home. She could not eat anything, did throw up her food, and made her n.p.o. again. She was on IV fluids, budesonide, Glucophage, Glucotrol, insulin coverage, Januvia, Lipitor, Levoxyl, Lyrica, Spiriva, Xanax, and Zofran. She is still very nauseous. I am going to try and increase the diet that is soft, may be she could tolerate it. She threw up yesterday, regular. PHYSICAL EXAMINATION: VITAL SIGNS: She has 98 temperature, 110 pulse, 117/80 blood pressure, 20 respiratory rate, 97% O2 saturation on room air. HEENT: Head is atraumatic, normocephalic. HEART: Regular rate. LUNGS: Decreased breath sounds. ABDOMEN: Soft. Decreased bowel sounds, but present. No guarding. No rebound. No CVA tenderness. EXTREMITIES: No edema. LABORATORY DATA: She has 135 sodium, potassium 4.3. BUN 14, creatinine 0.6. GFR greater than 60. Sugar has been 288, 268, and 266. Calcium is 9.1. Total bili is 0.8, AST is 43, ALT is 67, alk phos 97. Troponin I is less than 0.01. Total protein 7.2. She has a white count of 5.8, hemoglobin 14.7, hematocrit 42.6, and platelets of 232. So far, I am waiting for Dr. Navarro, the insurance risk surveyor to see her. I ordered a CAT scan of the abdomen and pelvis. I changed her to an inpatient. We will continue with intravenous fluids. I am hoping she can tolerate soft diet. She is here with a lot of abdominal pain, diarrhea, anxiety, with her being in the intensive care unit. Dex Donnelly DO
[2018-03-13] MEDS: Insulin Reg-MEDIUM-Coverage SC SCH ×2 (19:31→22:25)
[2018-03-14 07:09] LABS: HEMOGLOBIN 13.1 g/dL (12.0-16.0); MEAN CORPUSCULAR HEMOGLOBIN 27.7 pg (25.0-35.0); MEAN CORPUSCULAR HGB CONC 33.8 g/dl (31.0-37.0); MEAN PLATELET VOLUME 9.9 fl (7.0-11.0); RBC 4.73 10^6/uL (3.5-6.1); RED CELL DISTRIBUTION WIDTH 12.8 % (11.5-14.5); WHITE BLOOD COUNT 6.5 10^3/ul (4.5-11.0)
[2018-03-14 07:32] LABS: ALB/GLOB RATIO 1.1 (1.1-1.8); ALBUMIN 3.4 g/dL (3.0-4.8); ALT/SGPT 41 U/L (7-56); AST/SGOT 31 U/L (14-36); BLOOD UREA NITROGEN 13 mg/dL (7-21); GFR AFRICAN-AMERICAN > 60; GFR NON-AFRICAN AMERICAN > 60
[2018-03-14 07:49] VITALS: BP 105/69; PULSE 91; TEMP 98.1; O2SAT 100
[2018-03-14] MEDS: Omega-3-Acid Ethyl Esters 1 GM Cap PO SCH (09:25)
[2018-03-14] MEDS: Tiotropium 18 mcg Cap For Inhalation INH SCH (09:25)
[2018-03-14] MEDS: Insulin Reg-MEDIUM-Coverage SC SCH ×2 (09:27→11:56)
--- NOTE | 2018-03-14 10:38 | CON ---
Copied To: Vivek Navarro MD Attending MD: Vivek Navarro MD DATE: 03/14/2018 CONSULTATION IN GASTROENTEROLOGY REQUESTING PHYSICIAN: Dex Donnelly DO. REASON FOR CONSULT: I have been asked to see this 63-year-old female with a history of type 2 diabetes mellitus, hyperlipidemia, who comes to the hospital with 3 days of severe intractable watery diarrhea and generalized weakness. In the hospital, she had one episode of vomiting. Her is in the Intensive Care Unit with a similar type diarrheal illness associated with severe dehydration and acute renal failure. She admits to some mild left lower quadrant abdominal pain. CT scan of the abdomen and pelvis show a fluid-filled colon with some mild thickening of the descending and sigmoid colon and some mesenteric inflammation around the sigmoid colon as well as ascending colon. Her abdominal pain has improved. She has not had any diarrhea in over 12 hours. She is tolerating a full liquid diet. She denies any recent travel or ingestion of unusual foods. Again, her is ill with a similar type diarrheal illness. PAST MEDICAL HISTORY: Notable for diabetes mellitus, hyperlipidemia. PAST SURGICAL HISTORY: Notable for LASIK surgery; right knee, left shoulder, right foot and wrist surgery. SOCIAL HISTORY: She consumes alcohol on a social basis. She denies cigarette smoking. MEDICATIONS: Include metformin, omega-3, Lyrica, Crestor, Myrbetriq, Naprosyn, Spiriva, budesonide, glipizide, omega-3 and alprazolam. REVIEW OF SYSTEMS: Fourteen-point review of systems is notable for diarrhea, left lower quadrant abdominal pain and vomiting. PHYSICAL EXAMINATION: GENERAL: Well-developed female lying in bed, in no acute distress. VITAL SIGNS: Reveal temperature of 98.1, blood pressure 105/69, heart rate 91. HEENT: Reveals sclerae to be white. Conjunctivae pink. Oral mucosa is moist. NECK: Supple. CHEST: Lungs are clear. HEART: Reveals a regular rate and rhythm. ABDOMEN: Flabby, soft, nontender. EXTREMITIES: Show no edema. LABORATORY DATA: Reveals white blood cell count 6.5, hemoglobin 13.1. Chemistries reveal potassium 3.4, blood sugar 267. AST, ALT, alk phos were all normal from this morning. IMPRESSION: Probable gastroenteritis. Her is ill with the similar illness. He was severely dehydrated and had acute renal failure requiring Intensive Care Unit admission. RECOMMENDATIONS: 1. Advance to a low-fat lactose-free diet. 2. Check stool cultures. Note, stool for C. diff was negative. 3. We will check stool for norovirus. Vivek Navarro MD
[2018-03-14] MEDS ORDERED: Potassium Chloride 20 mEq ER Tab PO ONE (10:58)
--- NOTE | 2018-03-14 13:27 | PN ---
Copied To: Dex Donnelly DO Attending MD: Dex Donnelly DO DATE: 03/14/2018 SUBJECTIVE: I saw Larisa Figueroa resting comfortably in bed. She is doing much better. She is able to eat her breakfast today. That is the first meal she kept down without nausea, vomiting and if she could eat well for lunch today, I plan on discharging her. PHYSICAL EXAMINATION: VITAL SIGNS: She has a 98.1 temperature, 91 pulse, 105/69 blood pressure, 20 respiratory rate and 100% O2 sat on room air. HEENT: Head is atraumatic, normocephalic. HEART: Regular rate. LUNGS: Clear to auscultation. ABDOMEN: Soft, nontender. Positive bowel sounds. No guarding, no rebound. No CVA tenderness. EXTREMITIES: Have no edema. She is actually able to walk to the bathroom today. MEDICATIONS: She is on Symbicort, Glucophage, Glucotrol, Januvia, Lipitor, Lovaza, Lyrica, IV fluids, Spiriva, Xanax and Zofran. LABORATORY DATA: She has 137 sodium, potassium 3.4. I gave her one potassium today replacement. BUN 13, creatinine 0.6, GFR is greater than 60, sugar is 267. Calcium is 9, total bili is 0.5, AST is 31, ALT is 41, alk phos 81, all better. Total protein is 6.3. White count 6.5, hemoglobin 13.1, hematocrit 38.8, platelets of 289. All the cultures, C. Diff was negative. She was seen by GI. She was able to be discharged today for severe gastroenteritis, anxiety, diarrhea. She has diabetes and hopefully, she will continue to do well. She will be discharged after lunch. Dex Donnelly DO
== END 2018-03-14 15:24 | disposition home or self-care (01) ==
LOC: ED 16:56 → ERH 21:06 → 3RNO 21:46
PROVIDERS: ADMIT Family Medicine; ATTEND Family Medicine
DX: A08.4 Viral intestinal infection, unspecified (principal); E86.0 Dehydration; N17.9 Acute kidney failure, unspecified; E11.9 Type 2 diabetes mellitus without complications; E78.00 Pure hypercholesterolemia, unspecified; E78.5 Hyperlipidemia, unspecified; F41.9 Anxiety disorder, unspecified; Z79.51 Long term (current) use of inhaled steroids; Z88.1 Allergy status to other antibiotic agents; Z88.0 Allergy status to penicillin; Z88.2 Allergy status to sulfonamides; Z88.8 Allergy status to other drugs, medicaments and biological substances; Z87.892 Personal history of anaphylaxis
CPT/HCPCS: 36415; 71045; 74176; 80053; 82550; 82803; 82948; 83615; 84484; 85025; 85027; 85610; 85730; 87040; 87086; 87324; 93005; 96374; 99285; G0378; J2405; J7030